=== PATIENT | male | born 1975 | race Caucasian/White ===

== ENCOUNTER 2016-07-06 23:47 | Emergency (ER) | payer OTHER ==
[~2016-07-06] VITALS: Ht 185.4 cm; Wt 88.0 kg
[2016-07-07 00:04] VITALS: BP 115/68; PULSE 110; RESP 20; TEMP 98; O2SAT 98
--- NOTE | 2016-07-07 00:45 | RADRPT ---
EXAM DATE/TIME: 07/07/2016 00:31 [place] COMPARISON: No previous studies available for comparison. INDICATIONS : Fall landed on right knee. MEDICAL HISTORY : None. SURGICAL HISTORY : None. ENCOUNTER: Initial ACUITY: 1 day PAIN SCORE: 0/10 LOCATION: Right knee FINDINGS: Four view examination of the right knee demonstrates no evidence of fracture or dislocation. Bony mi neralization is normal. Mild degenerative changes. No fracture or effusion. The suprapatellar soft t issues have a normal configuration. CONCLUSION: 1. Mild osteoarthritis without fracture. Martinez Burdick MD on July 07, 2016 at 0:43 Board Certified Radiologist. This report was verified electronically.
--- NOTE | 2016-07-07 00:46 | PD ---
HPI Chief Complaint: Alcohol/Drug Intoxication Time Seen by Provider: 00:11 Travel History International Travel<30 days: No Contact w/Intl Traveler<30days: No Traveled to known affect area: No History of Present Illness HPI 40-year-old male got in by PD under [employer] act after being found in [place] unable to walk down the road. According to the [employer] act the patient was walking down the roadway and is highly intoxicated. Upon arrival to the emergency department the patient is awake and alert. He is complaining of right knee pain. When asked how long he has had this pain he says for years and that he has meniscal damage to the knee. He is asking me to look at his knee. He is denying any other physical complaints. No suicidal or homicidal ideation. He admits to drinking a large quantity of whiskey today. He denies illicit drug use. [facility] Past Medical History Medical History: Denies Significant Hx Immunizations Current: Yes Tetanus Vaccination: Unknown Influenza Vaccination: No Past Surgical History Other Surgery: Yes (RIGHT KNEE SURGERY) Social History Alcohol Use: Yes Tobacco Use: Yes Substance Use: No Allergies-Medications (Allergen,Severity, Reaction): Coded Allergies: No Known Allergies (Unverified , 07/07/16) Reported Meds & Prescriptions Reported Meds & Active Scripts Active No Active Prescriptions or Reported Medications Review of Systems Except as stated in HPI: all other systems reviewed are Neg Physical Exam Narrative GENERAL: Well-developed, well-nourished, awake, alert, no acute distress. SKIN: Focused skin assessment warm/dry. HEAD: Atraumatic. Normocephalic. EYES: Pupils equal, round, 3 mm, reactive to light. Horizontal nystagmus. No scleral icterus. No injection or drainage. ENT: Mucous membranes pink and moist. NECK: Trachea midline. No JVD. No midline cervical spine step-off or tenderness. No nuchal rigidity. CARDIOVASCULAR: Regular rate and rhythm. RESPIRATORY: No accessory muscle use. Clear to auscultation. Breath sounds equal bilaterally. GASTROINTESTINAL: Abdomen soft, non-tender, nondistended. MUSCULOSKELETAL: Right knee without obvious deformity, without swelling, with normal passive range of motion, limited active range of motion, however feels like the patient is resisting when flexing his knee. The rest of his joints and extremities are without deformity, without tenderness, with normal range of motion. NEUROLOGICAL: Awake and alert. No obvious cranial nerve deficits. Motor grossly within normal limits. Normal speech. PSYCHIATRIC: Appropriate mood and affect; insight and judgment normal. Data Data Last Documented VS Vital Signs Date Time Temp Pulse Resp B/P Pulse Ox O2 Delivery O2 Flow Rate FiO2 07/07/16 00:04 98.0 110 20 115/68 98 Room Air Orders Knee, Complete (4vws) (07/07/16 ) [facility] Medical Decision Making Medical Screen Exam Complete: Yes Emergency Medical Condition: Yes Differential Diagnosis Alcohol intoxication, drug intoxication, intracranial abnormality less likely, right knee sprain, right knee ligamentous injury Narrative Course Vital signs reviewed. Right knee x-ray: CONCLUSION: 1. Mild osteoarthritis without fracture. The patient is awake and alert. He is currently intoxicated. There are no obvious signs of trauma. He denies suicidal or homicidal ideation. He will be allowed to sleep off his intoxication in the emergency department. Scripts No Active Prescriptions or Reported Meds Beni Robles MD Jul 07, 2016 00:45
--- NOTE | 2016-07-07 06:12 | PD ---
Physical Exam Date Seen by Provider: Jul 07, 2016 Time Seen by Provider: 06:09 Narrative GENERAL: This is a well-nourished, well-developed patient, in no apparent distress. SKIN: No rashes, ecchymoses or lesions. Warm and dry. HEAD: Atraumatic. Normocephalic. EYES: PERRL, EOMI, no discharge or injection. No scleral icterus. EARS: Clear NOSE: Nasal turbinates appear normal. THROAT: Mucosa pink and moist. Airway patent. NECK: Trachea midline. supple, moves head freely. LUNGS: Clear to auscultation. CV: Regular in rhythm. ABDOMEN: Soft nontender. EXT: No clubbing cyanosis or edema. Patient has osteoarthritis in the right knee. Data Data Last Documented VS Vital Signs Date Time Temp Pulse Resp B/P Pulse Ox O2 Delivery O2 Flow Rate FiO2 07/07/16 00:04 98.0 110 20 115/68 98 Room Air Orders Knee, Complete (4vws) (07/07/16 ) [facility] Medical Record Reviewed: Yes Supervised Visit with EVIE: Yes Interpretation(s) Last 24 hours Impressions Knee X-Ray 07/07/16 0000 Signed Impressions: Service Date/Time: Thursday, July 07, 2016 00:31 - CONCLUSION: 1. Mild osteoarthritis without fracture. Martinez Burdick MD Differential Diagnosis Differential diagnoses: Alcohol intoxication, substance abuse, electrolyte abnormality, malingering Narrative Course X-ray of the right knee is negative for acute fracture. Positive arthritic changes. The patient has now sobered up. He is been resting comfortably examination room watching TV. He's been up to the bathroom and ambulates with a strong steady gait. The patient requests his glasses. Unfortunately the patient did not come in with any eyeglasses this evening. He also felt that he was in [place] at [facility]. He was informed that he was at [place]. He states that he had been drinking at [facility]. Patient denies any suicidal homicidal ideation. He is medically stable for discharge. The patient is instructed to call his parents accompany come up. He states that they live in [place]. This is alcohol intoxication Diagnosis Primary Impression: Alcohol intoxication Patient Instructions: General Instructions, Alcohol Intoxication (ED) Departure Forms: Tests/Procedures Additional Instruction: Rest. Increase fluids. Avoid alcohol. Avoid illegal substances. Follow-up with [facility] for detox. Do not operate a car or any heavy machinery under the influence of alcohol or drugs. Follow-up with a medical doctor this week. Return to the ER for emergencies Med/Other Pt SpecificInfo: No Meds Exist/No RX given Scripts No Active Prescriptions or Reported Meds Disposition: 01 DISCHARGE HOME Condition: Stable Tay Davis Jul 07, 2016 06:12
[2016-07-07 06:25] VITALS: BP 112/56; PULSE 99; RESP 20; O2SAT 96
== END 2016-07-07 06:27 | disposition home or self-care (01) ==
LOC: NEPD 23:47
DX: F10.129 Alcohol abuse with intoxication, unspecified (principal); M17.11 Unilateral primary osteoarthritis, right knee; Z72.0 Tobacco use
CPT/HCPCS: 73564; 99284